=== PATIENT | male | born 1990 | race Caucasian/White ===

== ENCOUNTER 2023-05-12 14:49 | Emergency (ER) | payer OTHER ==
[2023-05-12 14:56] VITALS: BP 122/70; PULSE 73; RESP 18; TEMP 98; BMI 29.4
[2023-05-12] MEDS ORDERED: ONDANSETRON 4 MG/2 ML VIAL ONE (15:38)
[2023-05-12] MEDS ORDERED: morphine SULFATE 4 MG/ML VIAL ONE (15:38)
[2023-05-12] MEDS ORDERED: DIPHTH,PERTUSS(ACELL),TET 0.5 ML DISP.SYRIN IM ONE ×2 (15:49→15:57)
[2023-05-12] MEDS ORDERED: morphine CARPU-JECT 4 MG/1 ML DISP.SYRIN IVPUSH ONE (15:50)
[2023-05-12] MEDS ORDERED: ONDANSETRON 4 MG/2 ML VIAL IVPUSH ONE (15:50)
[2023-05-12] MEDS ORDERED: SODIUM CHLORIDE 0.9% 1000 ML INFUS.BAG IV ONE (15:50)
[2023-05-12 16:23] LABS: HEMATOCRIT 44.5 % (35.4-49); HEMOGLOBIN 15.6 GM/dL (11.7-16.9); MEAN CELL VOLUME 82.8 fl (80-96); MEAN PLT VOLUME 8.1 fl (7.5-11.1); PLATELET COUNT 219 10^3/uL (134-434); RBC 5.38 M/mm3 (4.00-5.60); WHITE BLOOD COUNT 6.4 K/mm3 (4.0-10.0)
[2023-05-12 16:51] LABS: POTASSIUM 3.4 mmol/L (3.5-5.1)
[2023-05-12 16:53] LABS: CALCIUM 9.4 mg/dL (8.5-10.1)
[2023-05-12 16:54] LABS: ALBUMIN 4.2 g/dl (3.4-5.0); BLOOD UREA NITROGEN 19.7 mg/dL (7-18)
[2023-05-12 16:57] LABS: CREATININE 1.1 mg/dL (0.55-1.3)
[2023-05-12 16:58] LABS: BILIRUBIN,TOTAL 0.4 mg/dL (0.2-1); TOT PROT 7.8 g/dl (6.4-8.2)
[2023-05-12 17:15] LABS: EPI CELLS 1 /uL (0-25.1); HYALINE CASTS 0 /uL (0-3.1); PH,URINE 5.5 (5.0-8.0); URINE APPEARANCE CLEAR; URINE BACTERIA 2 /uL (0-1359); URINE BILIRUBIN NEGATIVE (NEGATIVE); URINE COLOR YELLOW; URINE GLUCOSE (UA) NEGATIVE (NEGATIVE); URINE KETONE TRACE (NEGATIVE); URINE LEUK ESTERASE NEGATIVE (NEGATIVE); URINE NITRITE NEGATIVE (NEGATIVE); URINE PROTEIN NEGATIVE (NEGATIVE); URINE RBC 12 /uL (0-23.9); URINE UROBILINOGEN 0.2 mg/dL (0.2-1.0); URINE WBC 5 /uL (0-25.8)
[2023-05-12] MEDS ORDERED: BACITRACIN ZINC 15 GM TUBE TOPICAL OINTMENT ONE (20:37)
== END 2023-05-12 21:37 | disposition home or self-care (01) ==
LOC: JER 14:49
PROC: 0HQ1XZZ Repair Face Skin, External Approach (ICD-10-PCS; principal; 2023-05-12)
PROC: 2W3RX1Z Immobilization of Left Lower Leg using Splint (ICD-10-PCS; 2023-05-12)
PROC: 3E033GC Introduction of Other Therapeutic Substance into Peripheral Vein, Percutaneous Approach (ICD-10-PCS; 2023-05-12)
PROC: 3E033GC Introduction of Other Therapeutic Substance into Peripheral Vein, Percutaneous Approach (ICD-10-PCS; 2023-05-12)
PROC: 3E0234Z Introduction of Serum, Toxoid and Vaccine into Muscle, Percutaneous Approach (ICD-10-PCS; 2023-05-12)
DX: S82.52XA Displaced fracture of medial malleolus of left tibia, initial encounter for closed fracture (principal); S01.81XA Laceration without foreign body of other part of head, initial encounter; R07.9 Chest pain, unspecified; R68.84 Jaw pain; M25.532 Pain in left wrist; M79.642 Pain in left hand; M79.631 Pain in right forearm; M25.572 Pain in left ankle and joints of left foot; W10.8XXA Fall (on) (from) other stairs and steps, initial encounter; W22.8XXA Striking against or struck by other objects, initial encounter
CPT/HCPCS: 12013; 29515; 70450-TC; 71045-TC-FY; 71260-TC; 72125-TC; 72170-TC-FY; 73090-TC-RT-FY; 73110-TC-LT-FY; 73130-TC-LT-FY; 73590-TC-LT-FY; 73610-TC-LT-FY; 73630-TC-LT; 74177-TC; 80053; 81003; 82550; 82553; 84484; 85027; 86850; 86900; 86901; 87086; 90471; 90715; 93005; 93010; 96374; 96375; 99285-25; Q9967

== ENCOUNTER 2023-05-21 07:32 | Emergency (ER) | payer SELFPAY ==
[2023-05-21 07:54] VITALS: BP 100/58; PULSE 63; RESP 18; TEMP 97.5; BMI 28.1
== END 2023-05-21 08:44 | disposition home or self-care (01) ==
LOC: JER 07:32 → JERFT 07:32
DX: Z48.02 Encounter for removal of sutures (principal)
CPT/HCPCS: 99282-25